=== PATIENT | male | born 1960 | race Two or more races ===

== ENCOUNTER 2020-03-11 02:09 | Emergency (ER) | payer OTHER ==
[2020-03-11 02:29] LABS: ABSOLUTE BASOPHILS # (AUTO) 0.1 10^3/uL (0.0-0.2); ABSOLUTE EOSINOPHILS # (AUTO) 0.1 10^3/uL (0.0-0.6); ABSOLUTE LYMPHOCYTES (AUTO) 3.6 10^3/uL (0.5-4.7); ABSOLUTE MONOCYTES (AUTO) 0.9 10^3/uL (0.1-1.4); BASOPHILS % (AUTO) 0.5 % (0-2); EOSINOPHILS % (AUTO) 0.8 % (0-6); HEMOGLOBIN 16.4 g/dL (13.5-17.0); LYMPHOCYTES % (AUTO) 30.9 % (13-45); MEAN CORPUSCULAR HEMOGLOBIN 29.8 pg (27.0-33.4); MEAN CORPUSCULAR HGB CONC 34.8 g/dL (32.0-36.0); MEAN CORPUSCULAR VOLUME 86 fl (80-97); MONOCYTES % (AUTO) 7.5 % (3-13); PLATELET COUNT 263 10^3/uL (150-450); RED BLOOD COUNT 5.49 10^6/uL (4.35-5.55); SEGMENTED NEUTROPHILS % (AUTO) 60.3 % (42-78); TOTAL CELLS COUNTED % (AUTO) 100 %; WHITE BLOOD COUNT 11.6 10^3/uL (4.0-10.5)
[2020-03-11] MEDS ORDERED: HYDROMORPHONE HCL INJ/PF 2 MG/ML AMPULE IV ONE (02:30)
[2020-03-11] MEDS ORDERED: ONDANSETRON HCL INJ/PF 4 MG/2 ML SDV IV ONE (02:30)
[2020-03-11] MEDS ORDERED: LIDOCAINE 2% VISCOUS SOLN 15 ML UDCUP PO ONE (02:31)
[2020-03-11] MEDS ORDERED: NORMAL SALINE 1000 ML 1,000 ML IV ONE (02:31)
[2020-03-11] MEDS ORDERED: MAG HYDROX/AL HYDROX/SIMETH SUSP 30 ML UDCUP PO ONE (02:31)
--- NOTE | 2020-03-11 02:39 | ER Document Report ---
ED GI/ - General Chief Complaint: Abdominal Pain Stated Complaint: ABDOMINAL PAIN Time Seen by Provider: 03/11/20 02:21 Notes: Patient is a 59-year-old male who presents emergency department with a chief complaint of right upper quadrant abdominal pain. Patient states that he ate pizza last night and around 10:00, he had excruciating pain. States that he has had this before and states that it feels like his gallbladder is acting up. De nies any past medical history. Does not take any medications. Patient is visiting from [place]. - Related Data Allergies/Adverse Reactions: No Known Allergies Allergy (Unverified 03/11/20 02:19) Past Medical History - General Information source: Patient - Social History Smoking Status: Never Smoker Frequency of alcohol use: None Drug Abuse: None Family History: Reviewed & Not Pertinent Patient has homicidal ideation: No Review of Systems - Review of Systems Notes: REVIEW OF SYSTEMS: CONSTITUTIONAL : Denies recent illness. Denies recent unintentional weight loss. Denies fever, chills, or sweats. EENT: Denies eye, ear, throat, or mouth pain, discharge, or symptoms. Denies nasal or sinus congestion. CARDIOVASCULAR: Denies chest pain. RESPIRATORY: Denies shortness of breath, cough, congestion, difficulty breathing, or wheezing. GASTROINTESTINAL: See HPI. GENITOURINARY: Denies difficulty urinating, burning, blood in urine, urgency or frequency. MUSCULOSKELETAL: Denies neck and back pain. Denies joint pain or swelling. SKIN: Denies rash, itchiness, or lesions HEMATOLOGIC : Denies easy bruising or bleeding. LYMPHATIC: Denies swollen, painful, enlarged glands. NEUROLOGICAL: Denies no numbness or tingling denies weakness. Denies headache. Denies altered mental status. Denies alteration in speech. PSYCHIATRIC: Denies stress, anxiety, alteration in sleep patterns, or depression. All other systems reviewed and negative. Physical Exam - Vital signs Vitals: Temp Pulse Resp BP Pulse Ox 97.1 F 71 18 155/81 H 100 03/11/20 02:13 03/11/20 02:13 03/11/20 02:13 03/11/20 02:13 03/11/20 02:13 - Notes Notes: PHYSICAL EXAMINATION: GENERAL: Appears well, healthy, well-nourished, no acute distress. HEAD: Normocephalic, atraumatic. EYES: PERRL, conjunctiva normal, all extraocular movements intact, sclera nonicteric ENT: Moist mucous membranes. NECK: Supple, no noticeable swelling, redness, rash. Normal range of motion. LUNGS: Equal breath sounds bilaterally and clear to auscultation. No wheezes rales or rhonchi. CARDIOVASCULAR: S1-S2, regular rate, regular rhythm. Radial pulses 2+, normal. ABDOMEN: Normoactive bowel sounds. Soft, very tender right upper quadrant, no guarding, no rebound tenderness, and no masses palpated. EXTREMITIES: Normal strength and range of motion, no pitting or edema. No cyanosis. NEUROLOGICAL: Moves all extremities upon command. Strength 5/5 in all extremities. PSYCH: Normal mood, normal affect. SKIN: Warm, dry. No rash, lesions, ulcerations noted. Normal skin turgor. Course - Re-evaluation Re-evalutation: 03/11/20 04:44 Hematology shows a leukocytosis of 11,600, but this is most likely from an acute inflammatory response. Patient states that he feels much better. Patient has s ramez in his gallbladder. I gave him the option of having his gallbladder removed here in the emergency department, but he states that since he is from [place], he would like to have his gallbladder taken out when he returns home to [place]. He returns home in a week. There are no elevations in his bilirubin. Chest x-ray is unremarkable. Troponin and lipase are also unremarkable. Patient has some ketones in his urine. Instructed patient to drink more water. Follow-up precautions were given. Verbal discharge instructions were given to the patient. They verbalized understanding. They are stable for discharge. - Vital Signs Vital signs: Temp Pulse Resp BP Pulse Ox 98.7 F 77 18 134/69 H 96 03/11/20 05:06 03/11/20 05:06 03/11/20 05:06 03/11/20 05:06 03/11/20 05:06 - Laboratory Result Diagrams: 03/11/20 02:20 03/11/20 02:20 Laboratory results interpreted by me: 03/11/20 03/11/20 03/11/20 02:20 02:20 03:45 WBC 11.6 H Sodium 136.7 L BUN 23 H Glucose 134 H Alkaline Phosphatase 128 H Urine Ketones 20 H Discharge - Discharge Clinical Impression: Gallbladder sludge, Right upper quadrant abdominal pain Condition: Stable Disposition: HOME, SELF-CARE Additional Instructions: You are seen today in the emergency department for abdominal pain. You have sludge in your gallbladder. Please make sure you stay away from fatty foods. Please follow-up with your primary care provider a surgeon in regards to this visit. If you have worsening symptoms, return to the emergency department immediately.
[2020-03-11 03:05] LABS: ALBUMIN 4.9 g/dL (3.5-5.0); ALKALINE PHOSPHATASE 128 U/L (38-126); ANION GAP 11 (5-19); ASPARTATE AMINO TRANSFERASE 30 U/L (17-59); BILIRUBIN,TOTAL 0.9 mg/dL (0.2-1.3); BLOOD UREA NITROGEN 23 mg/dL (7-20); CALCIUM 10.1 mg/dL (8.4-10.2); CARBON DIOXIDE 23 mmol/L (22-30); CHLORIDE 103 mmol/L (98-107); GLUCOSE 134 mg/dL (75-110); POTASSIUM 4.4 mmol/L (3.6-5.0); TOTAL PROTEIN 8.1 g/dL (6.3-8.2)
--- NOTE | 2020-03-11 03:54 | RADIOLOGY REPORT (SQ) ---
EXAM DESCRIPTION: XR CHEST 1 VIEW COMPLETED DATE/TME: 03/11/2020 02:32 CLINICAL HISTORY: 59 years Male, back pain COMPARISON: None. NUMBER OF VIEWS/TECHNIQUE: 1/AP Limitation: Rotation FINDINGS: Adequate lung volume, clear parenchyma, normal cardiac silhouette, and intact bony thorax. IMPRESSION: No acute cardiopulmonary findings. Limitation.
[2020-03-11 04:04] LABS: AMORPHOUS SEDIMENT,URINE 1+ /HPF; APPEARANCE,URINE CLOUDY; BILIRUBIN,URINE NEGATIVE (NEGATIVE); COLOR,URINE YELLOW; GLUCOSE, URINE NEGATIVE (NEGATIVE); KETONES,URINE 20 mg/dL (NEGATIVE); LEUKOCYTE ESTERASE,URINE NEGATIVE (NEGATIVE); NITRITE,URINE NEGATIVE (NEGATIVE); PROTEIN,URINE NEGATIVE (NEGATIVE); URINE SPECIFIC GRAVITY 1.016; UROBILINOGEN,URINE NEGATIVE mg/dL (<2.0)
--- NOTE | 2020-03-11 04:07 | RADIOLOGY REPORT (SQ) ---
EXAM DESCRIPTION: US ABDOMEN LIMITED COMPLETED DATE/TME: 03/11/2020 02:31 CLINICAL HISTORY: 59 years Male, RUQ abdominal pain Comparison: None. LIMITATIONS: None. FINDINGS: Gallbladder sludge, negative sonographic Hill's test, moderate hepatic steatosis, a 0.4-cm diameter common bile duct, no intrahepatic ductal dilation, hepatopetal patent flow of the portal vein, 11-cm right kidney, partially obscured pancreas, visualized vasculature/abdominal aorta, and no significant ascites appear otherwise unremarkable. IMPRESSION: No acute findings. Gallbladder sludge. Moderate hepatic steatosis.
[2020-03-11 05:08] VITALS: BP 134/69
--- NOTE | 2020-03-11 06:15 | EKG REPORT ---
SEVERITY:- OTHERWISE NORMAL ECG - SINUS RHYTHM EARLY PRECORDIAL TRANSITION PRECORDIAL LEADS : Confirmed by: Rah Sanford MD 11-Mar-2020 06:14:50
== END 2020-03-11 05:02 | disposition home or self-care (01) ==
LOC: ER 02:09
DX: K82.8 Other specified diseases of gallbladder (principal); R10.11 Right upper quadrant pain
CPT/HCPCS: 93005; 99284; 96361; 96374; 96375; 36415; 83690; 85025; 80053; 81001; 84484; 71045; 76705; 93010; J3490; J1170; J2405; J7030